=== PATIENT | female | born 1980 | race Two or more races ===

== ENCOUNTER 2018-01-07 09:42 | Emergency (ER) | payer BC, MEDICAID ==
[~2018-01-07] VITALS: Ht 165.1 cm; Wt 89.8 kg
[~2018-01-07 09:42] MED LIST: AMOX500C2 PO; NAPR500T31
[2018-01-07 09:57] VITALS: BP 152/93
[2018-01-07] MEDS ORDERED: KETOROLAC TROMETH 60MG/2ML VIAL IM ONE (11:00)
== END 2018-01-07 11:33 | disposition home or self-care (01) ==
LOC: ER 09:42
DX: H60.93 Unspecified otitis externa, bilateral (principal)
CPT/HCPCS: 96372; 99283; J1885

== ENCOUNTER 2018-02-22 10:17 | Emergency (ER) | payer BC, MEDICAID ==
[~2018-02-22] VITALS: Ht 165.1 cm; Wt 89.8 kg
[2018-02-22 10:33] VITALS: BP 153/88
[2018-02-22] MEDS ORDERED: KETOROLAC TROMETH 60MG/2ML VIAL IM ONE (11:30)
[2018-02-22] MEDS ORDERED: HYDROcodone-ACET 5/325MG TAB PO ONE (11:30)
== END 2018-02-22 11:48 | disposition home or self-care (01) ==
LOC: ER 10:17
DX: H66.92 Otitis media, unspecified, left ear (principal)
CPT/HCPCS: 96372; 99283; J1885

== ENCOUNTER 2019-04-15 09:30 | Emergency (ER) | payer OTHER, MEDICAID ==
[~2019-04-15] VITALS: Ht 165.1 cm; Wt 92.1 kg
[2019-04-15 10:17] VITALS: BP 124/77
[2019-04-15] MEDS ORDERED: KETOROLAC TROMETH 60MG/2ML VIAL IM ONE (10:45)
== END 2019-04-15 11:03 | disposition home or self-care (01) ==
LOC: ER 09:30
DX: H66.91 Otitis media, unspecified, right ear (principal); J06.9 Acute upper respiratory infection, unspecified
CPT/HCPCS: 96372; 99283; J1885

== ENCOUNTER 2020-05-31 11:20 | Emergency (ER) | payer MEDICAID, OTHER ==
[~2020-05-31] VITALS: Ht 165.1 cm; Wt 93.0 kg
[2020-05-31 11:55] LABS: Basophils # (auto) 0 10 ^3/uL (0-0.2); Basophils % (auto) 0.6 % (0.0-2.0); Eosinophils # (auto) 0.2 10 ^3/uL (0-0.8); Eosinophils % (auto) 2.6 % (0.0-7.0); Hematocrit 40.9 % (36.0-46.0); Hemoglobin 14.1 g/dL (12.2-16.2); Lymphocytes # (auto) 2.2 10 ^3/uL (0.4-5.4); Lymphocytes % (auto) 32.3 % (10.0-50.0); Mean Corpuscular Hemoglobin 32.4 pg (28.0-32.0); Mean Corpuscular Hgb Conc. 34.4 g/dL (32.0-36.0); Mean Corpuscular Volume 94.3 fL (80.0-100.0); Monocytes # (auto) 0.5 10 ^3/uL (0-1.3); Monocytes % (auto) 6.8 % (0.0-12.0); Neutrophils % (auto) 57.7 % (37.0-80.0); Nucleated Red Blood Cells % 0.1 %; Platelet Count (auto) 241 10^3/uL (140-450); Red Blood Cells 4.34 10^6/uL (4.0-5.20); Red Cell Distribution Width 14.1 % (11.8-14.3); White Blood Cell 6.9 10^3/uL (4.4-10.8)
[2020-05-31 12:16] VITALS: BP 154/114
[2020-05-31 12:21] LABS: Alanine Aminotransferase 51 U/L (13-56); Albumin 3.7 g/dL (3.4-5.0); Anion Gap 6 (5-15); Aspartate Aminotransferase 44 U/L (15-37); Calcium 8.6 mg/dL (8.5-10.1); Carbon Dioxide 25 mmol/L (21-32); Chloride 107 mmol/L (98-107); Glucose 123 mg/dL (74-106); Potassium 4.2 mmol/L (3.5-5.1); Sodium 138 mmol/L (136-145)
[2020-05-31 12:25] LABS: Urine Bacteria FEW /hpf (None Seen); Urine Blood Negative /uL (Negative); Urine Mucus FEW (None Seen); Urine Specific Gravity 1.021 (1.001-1.035); Urine WBC 3 /hpf (0 - 5)
[2020-05-31 12:31] LABS: Alkaline Phosphatase 74 U/L (45-117); BUN/Creatinine Ratio 12.3; Bilirubin, Total 0.5 mg/dL (0.2-1.0); Blood Urea Nitrogen 10 mg/dL (7-18); GFR African American 102 mL/min; GFR Non-African American 84 mL/min; Total Protein 7.5 g/dL (6.4-8.2)
[2020-05-31] MEDS ORDERED: ASPirin 81 mg TAB PO ONE (13:00)
[2020-05-31 13:54] LABS: INR 0.95 (0.9-1.15); Partial Thromboplastin Time 26.2 sec (23.0-31.2)
== END 2020-05-31 15:05 | disposition home or self-care (01) ==
LOC: ER 11:20
DX: R07.89 Other chest pain (principal); N39.0 Urinary tract infection, site not specified
CPT/HCPCS: 36415; 71046; 80053; 81001; 81025; 83735; 84484; 85025; 85379; 85610; 85730; 93005